=== PATIENT | male | born 1930 | race Caucasian/White ===

== ENCOUNTER → 2016-06-21 | Day surgery (SDC) | payer MEDICARE ==
[~2016-06-21] VITALS: Ht 185.4 cm; Wt 84.8 kg
[~2016-06-21] MED LIST: ACETAMINOPHEN TAB 650MG DOSE (2X325MG) PO PRN; ASPI81TA85 PO; BUPIVACAINE/EPIN 0.25% 30 ML VIAL As Ordered ONE; CHLO50TA PO; CLINDAMYCIN 600 MG in APPROPRIATE DILUENT 1 EA IV ONE; CLINDAMYCIN 600 MG/50 ML PREMIX BAG As Ordered ONE; GLYCOPYRROLATE INJ 0.2 MG/ML 2 ML VIAL As Ordered ONE; LIDOCAINE 2% INJ 100 MG/5 ML SDV (FOR ANES.) As Ordered ONE; LR 1,000 ML IV SCH; MIDAZOLAM INJ 2 MG/2 ML VIAL (J2250) As Ordered ONE; MIDAZOLAM INJ 5 MG/ML VIAL (J2250) As Ordered ONE; MULT1TAB18 PO; NEOSTIGMINE 1MG/ML 5 ML SYRINGE (J2710) As Ordered ONE; NORCO, ANEXSIA 5/325MG TABLET (HYDROcodone/ACETAMINOPHEN) As Ordered ONE; NORCO, ANEXSIA 5/325MG TABLET (HYDROcodone/ACETAMINOPHEN) PO PRN; ONDANSETRON 4MG/2ML VIAL (J2405) As Ordered ONE; ONDANSETRON 4MG/2ML VIAL (J2405) IV PRN; POTA10CA PO; PROPOFOL 200 MG/20 ML VIAL As Ordered ONE; PROS5TAB PO; ROCURONIUM BROMIDE 50 MG/5 ML VIAL As Ordered ONE; SPIR25TA2 PO; TERA10CA3 PO; dexameTHASONE 4 MG/ML 1ML VIAL (J1100) As Ordered ONE; fentaNYL 100 MCG/2 ML INJECTION (J3010) As Ordered ONE; fentaNYL 100 MCG/2 ML INJECTION (J3010) IV PRN; fentaNYL 250 MCG/5 ML INJECTION (J3010) As Ordered ONE
[2016-06-21 16:15] VITALS: BP 143/72
--- NOTE | 2016-06-24 06:13 | RO ---
DATE OF PROCEDURE: 06/21/2016 PREOPERATIVE DIAGNOSIS: Right inguinal hernia. POSTOPERATIVE DIAGNOSIS: Right inguinal hernia. PROCEDURE: Laparoscopic right inguinal hernia repair. SURGEON: Dr. Brizuela GRINDER TENDER: Dr. Lyn ANESTHESIA: General. ESTIMATED BLOOD LOSS (EBL): 5. COMPLICATIONS: None. INDICATION FOR PROCEDURE: Patient is an 85-year-old male who presents with a right inguinal hernia. Recommendation to proceed with laparoscopic, possible open repair. Risks and benefits of procedure not limited but including bleeding, infection, hernia recurrence, damage to surrounding structures, need for further surgery were discussed in detail with the patient. Informed was obtained and procedure was planned. DESCRIPTION OF PROCEDURE: Patient was brought back to operating room #6. After sufficient sedation, the abdomen was sterilely prepped and draped. Next, a Mendosa catheter was placed. Time-out was then done to confirm proper patient and proper procedure. Following that a 2 cm infraumbilical incision was made. Incision was carried to level of the fascia. Fascia was opened under direct visualization just to the left of midline. Preperitoneal space was then entered. A balloon dissector was placed. Preperitoneal space was dissected and then the balloon dissector was removed and replaced with a 10 mm balloon port. Preperitoneal space was then insufflated to 15 mmHg. Two 5 mm ports were placed in the midline in between the pubic symphysis and the umbilical port site. Using a combination of blunt and sharp dissection, the cord structures and hernia sac were identified on the right side. They were both dissected free. The hernia sac was dissected free from all the cord structures both posteriorly and laterally. Once this was completed, a Bard 3DMax large mesh was rolled up and placed inside the abdomen. It was tacked to the midline using the Protacker at the pubic symphysis. The mesh was unrolled laterally and posteriorly covering all the cord structures. The hernia sac was placed on top of the mesh and held in place while the insufflation was released. Ports were then removed. Fascia at the umbilical port was closed with [id number] #0 Vicryl suture. The skin incision closed with #4-0 Vicryl subcuticular sutures. The abdomen was then cleaned and dried. Steri-Strips, 4 x 4 and tape were applied, thus ending procedure.
== END | disposition home or self-care (01) ==
LOC: M SDC 10:41
PROVIDERS: ATTEND Surgery
DX: K40.90 Unilateral inguinal hernia, without obstruction or gangrene, not specified as recurrent (principal); I10 Essential (primary) hypertension; K42.9 Umbilical hernia without obstruction or gangrene; L40.9 Psoriasis, unspecified; M19.90 Unspecified osteoarthritis, unspecified site; N40.0 Benign prostatic hyperplasia without lower urinary tract symptoms; Z88.0 Allergy status to penicillin; Z88.1 Allergy status to other antibiotic agents; Z88.5 Allergy status to narcotic agent; Z87.891 Personal history of nicotine dependence; Z79.899 Other long term (current) drug therapy; Z79.52 Long term (current) use of systemic steroids; Z79.82 Long term (current) use of aspirin
CPT/HCPCS: 49650; C1781; J1100; J2250; J2405; J2710; J3010

== ENCOUNTER 2016-08-19 10:44 | Emergency (ER) | payer MEDICARE ==
[~2016-08-19] VITALS: Ht 185.4 cm; Wt 83.9 kg
[~2016-08-19 10:44] MED LIST changes: -ACETAMINOPHEN TAB 650MG DOSE (2X325MG) PO PRN; -BUPIVACAINE/EPIN 0.25% 30 ML VIAL As Ordered ONE; -CLINDAMYCIN 600 MG in APPROPRIATE DILUENT 1 EA IV ONE; -CLINDAMYCIN 600 MG/50 ML PREMIX BAG As Ordered ONE; -GLYCOPYRROLATE INJ 0.2 MG/ML 2 ML VIAL As Ordered ONE; -LIDOCAINE 2% INJ 100 MG/5 ML SDV (FOR ANES.) As Ordered ONE; -LR 1,000 ML IV SCH; -MIDAZOLAM INJ 2 MG/2 ML VIAL (J2250) As Ordered ONE; -MIDAZOLAM INJ 5 MG/ML VIAL (J2250) As Ordered ONE; -NEOSTIGMINE 1MG/ML 5 ML SYRINGE (J2710) As Ordered ONE; -NORCO, ANEXSIA 5/325MG TABLET (HYDROcodone/ACETAMINOPHEN) As Ordered ONE; -NORCO, ANEXSIA 5/325MG TABLET (HYDROcodone/ACETAMINOPHEN) PO PRN; -ONDANSETRON 4MG/2ML VIAL (J2405) As Ordered ONE; -ONDANSETRON 4MG/2ML VIAL (J2405) IV PRN; -PROPOFOL 200 MG/20 ML VIAL As Ordered ONE; -ROCURONIUM BROMIDE 50 MG/5 ML VIAL As Ordered ONE; -dexameTHASONE 4 MG/ML 1ML VIAL (J1100) As Ordered ONE; -fentaNYL 100 MCG/2 ML INJECTION (J3010) As Ordered ONE; -fentaNYL 100 MCG/2 ML INJECTION (J3010) IV PRN; -fentaNYL 250 MCG/5 ML INJECTION (J3010) As Ordered ONE
[2016-08-19] MEDS ORDERED: NS 1,000 ML IV SCH (15:33)
--- NOTE | 2016-08-19 16:10 | REP ---
ABDOMEN, FLAT HISTORY: Abdominal pain. COMPARISON: None. Accompanying frontal view of the chest has been compared to the previous portable examination of the chest of 03/24/2016. FINDINGS: KUB shows the intestinal gas pattern to be nonspecific. The organ silhouettes insofar as delineated are unremarkable. There is no evidence of free intraperitoneal air. IMPRESSION: Nonspecific. The frontal view of the chest is unchanged from the prior exam. Signed by Duy Jaramillo DO 08/19/2016 04:39 P
[2016-08-19 16:37] LABS: BASO % 0.4 % (0.0-1.0); EOS # 0.1 K/mm3 (0.0-0.50); EOS % 1.2 % (0.0-3.0); LARGE UNSTAINED CELL # 0.1 K/mm3 (0.0-0.4); LARGE UNSTAINED CELL % 1.3 % (0.0-4.0); LYMPH # 1.9 K/mm3 (1.5-4.5); MEAN CORPUSCULAR HEMOGLOBIN 31.7 pg (27.0-33.0); MEAN CORPUSCULAR VOLUME 93.4 fl (80.0-96.0); MONO # 0.6 K/mm3 (0.0-0.8); MONO % 5.7 % (0.0-5.0); NEUTROPHILS # 8.2 K/mm3 (1.8-7.7); NEUTROPHILS % 75.4 % (36.0-66.0); PLATELET COUNT, AUTOMATED 451 k/mm3 (150-450); RED CELL DISTRIBUTION WIDTH 12.9 % (11.5-14.5); WHITE BLOOD COUNT 10.9 K/mm3 (4.0-10.0)
[2016-08-19 16:55] LABS: ALBUMIN 4.4 GM/DL (3.2-5.2); ALBUMIN/GLOBULIN RATIO 1.38 (1.00-1.93); BILIRUBIN,DIRECT 0.1 MG/DL (0.0-0.2); BILIRUBIN,TOTAL 0.5 MG/DL (0.2-1.0); CALCIUM LEVEL 9.8 MG/DL (8.8-10.2); CREATININE FOR GFR 1.28 MG/DL (0.70-1.30); GLOMERULAR FILTRATION RATE 56.9 (>35); POTASSIUM SERUM 3.8 MEQ/L (3.5-5.1); TOTAL PROTEIN 7.6 GM/DL (6.4-8.2)
[2016-08-19] MEDS ORDERED: GASTROGRAFIN SOLUTION 30ML (Q9963) PO ONE ×2 (17:40→18:10)
[2016-08-19] MEDS ORDERED: ISOVUE-370 76% 100ML VIAL (Q9967) As Ordered ONE (18:43)
--- NOTE | 2016-08-19 19:48 | REP ---
CT abdomen and pelvis with IV and oral contrast: History: Change in bowel habits since hernia repair. Comparison abdomen pelvis CT study is from 06/30/2007. CT contrast dose: 100 mL of Isovue [address] findings: Preliminary digital organic lab worker radiograph shows a mild levoconvex curve and clips in the right upper quadrant. The lung bases are clear. The liver and the spleen are normal in size homogeneous in texture. There is a tiny cyst in the tip of the right lobe of the liver. This is unchanged from the 2008 prior exam. No adrenal lesion is seen on either side. There are multiple simple cysts affecting the kidneys bilaterally. The largest of these is in the lower pole of the right kidney measuring 4.3 cm in greatest diameter. No pancreatic abnormality is seen. Gallbladder is surgically absent. There is scattered diverticulosis affecting the right transverse colon. There is more extensive diverticulosis affecting the descending and sigmoid colon. No CT evidence of diverticulitis is seen. Small and large intestinal bowel loops are otherwise normal. There is a small fluid collection along the spermatic cord on the right side measuring 3.8 x 3.2 x 7 cm in diameter. This is compatible with a hydrocele. No hernia is appreciated. No bony destructive lesion seen. Impression: 1. Lyons colonic diverticulosis most pronounced in the left colon without CT evidence of diverticulitis. 2. Multiple renal simple cysts. 3. Postcholecystectomy. The appendix is surgically absent as well. 4. Right inguinal and scrotal hydrocele noted. No hernia seen. No acute intra-abdominal or pelvic abnormality. Signed by Deo Smith MD 08/20/2016 10:03 A
[2016-08-19 20:41] VITALS: BP 161/84
== END 2016-08-19 20:42 | disposition home or self-care (01) ==
LOC: M ED 14:37
DX: R10.9 Unspecified abdominal pain (principal); I10 Essential (primary) hypertension; Z88.5 Allergy status to narcotic agent; Z88.0 Allergy status to penicillin; Z88.8 Allergy status to other drugs, medicaments and biological substances; Z79.899 Other long term (current) drug therapy; Z87.891 Personal history of nicotine dependence; Z85.820 Personal history of malignant melanoma of skin; H26.9 Unspecified cataract
CPT/HCPCS: 36415; 74022; 74177; 80048; 80076; 83605; 83690; 85025; 96360; 96361; 99283; Q9963; Q9967

== ENCOUNTER 2016-08-30 10:09 | Emergency (ER) | payer MEDICARE ==
[~2016-08-30] VITALS: Ht 185.4 cm; Wt 81.6 kg
[2016-08-30] MEDS: ONDANSETRON 4 MG ORAL DISINTEGRATING TAB (S0181) PO ONE (11:16)
[2016-08-30] MEDS: ACETAMINOPHEN 325 MG TAB PO ONE (11:17)
[2016-08-30] MEDS ORDERED: ZOFR4TAB3 PO (11:49)
[2016-08-30] MEDS ORDERED: TESS100C PO (11:49)
[2016-08-30] MEDS ORDERED: ZITHTAB PO (11:49)
[2016-08-30 11:53] VITALS: BP 142/70
[2016-08-30] MEDS: AZITHROMYCIN 250 MG TAB PO ONE (11:58)
--- NOTE | 2016-08-30 12:26 | REP ---
CHEST X-RAY: Two views. HISTORY: Cough. Comparison study August 19, 2016. FINDINGS: There is a zone of mild linear fibrosis versus discoid atelectasis in the left base. The lungs are otherwise well inflated and clear. Pleural angles are sharp. Heart size is normal. There are surgical clips in the left axilla. IMPRESSION: No active disease. Signed by Deo Smith MD 08/30/2016 02:01 P
== END 2016-08-30 12:10 | disposition home or self-care (01) ==
LOC: M ED 11:24
DX: J20.9 Acute bronchitis, unspecified (principal)

== ENCOUNTER 2016-09-03 11:21 | Emergency (ER) | payer MEDICARE ==
[~2016-09-03] VITALS: Ht 185.4 cm; Wt 83.9 kg
[~2016-09-03 11:21] MED LIST changes: +TESS100C PO; +ZITHTAB PO; +ZOFR4TAB3 PO
[2016-09-03] MEDS ORDERED: MIRA3350 PO (11:42)
[2016-09-03] MEDS ORDERED: NS 500 ML IV ONE (12:45)
--- NOTE | 2016-09-03 13:31 | REP ---
Clinical: Acute cerebrovascular accident. Comparison: 04/27/2005. Findings: Age-related atrophy and microvascular ischemic changes are appreciated. The ventricles and sulci are symmetric. Rodriguez-white differentiation is maintained. There is no evidence for acute intracranial hemorrhage, mass/mass effect, pathology or infarction. No extra-axial fluid collection. Calvarium is intact. Paranasal sinuses and mastoid air cells are clear. Impression: Age related atrophy and microvascular ischemic changes. No acute intracranial hemorrhage, infarction, or mass/mass effect. Signed by Trent Iniguez MD 09/03/2016 01:23 P
--- NOTE | 2016-09-03 13:36 | REP ---
Clinical: Chest pain. Technique: PA and lateral. Comparison: 08/30/2016. Findings: Mediastinum and cardiac silhouette stable. Linear fibroatelectatic changes at the left base. No further consolidation, effusion, or pneumothorax. Skeletal structures demonstrate age-related changes. Evidence for prior left axillary node dissection. Impression: Acute versus chronic linear plate-like atelectasis at the left base. No further acute cardiopulmonary process. Signed by Trent Iniguez MD 09/03/2016 01:28 P
[2016-09-03] MEDS ORDERED: IPRATROPIUM 0.5MG/ALBUTEROL 2.5MG INH SOL UD 3ML (DUONEB)(J7620) NEB ONE (14:00)
[2016-09-03 14:21] LABS: BASO % 0.5 % (0.0-1.0); EOS % 0.6 % (0.0-3.0); LARGE UNSTAINED CELL # 0.1 K/mm3 (0.0-0.4); LARGE UNSTAINED CELL % 1.5 % (0.0-4.0); LYMPH # 1.5 K/mm3 (1.5-4.5); LYMPH % 19.4 % (24.0-44.0); MEAN CORPUSCULAR HEMOGLOBIN 31.9 pg (27.0-33.0); MEAN CORPUSCULAR HGB CONC 35.1 g/dl (32.0-36.5); MEAN CORPUSCULAR VOLUME 91.1 fl (80.0-96.0); MONO # 0.5 K/mm3 (0.0-0.8); MONO % 6.2 % (0.0-5.0); NEUTROPHILS # 5.3 K/mm3 (1.8-7.7); NEUTROPHILS % 71.8 % (36.0-66.0); PLATELET COUNT, AUTOMATED 379 k/mm3 (150-450); RED CELL DISTRIBUTION WIDTH 12.5 % (11.5-14.5); WHITE BLOOD COUNT 7.3 K/mm3 (4.0-10.0)
[2016-09-03 14:33] LABS: ALBUMIN 3.8 GM/DL (3.2-5.2); ALBUMIN/GLOBULIN RATIO 0.95 (1.00-1.93); ALKALINE PHOSPHATASE 58 U/L (45-117); ALT/SGPT 31 U/L (12-78); ANION GAP 11 MEQ/L (8-16); AST/SGOT 35 U/L (15-37); BILIRUBIN,DIRECT < 0.1 MG/DL (0.0-0.2); BILIRUBIN,TOTAL 0.3 MG/DL (0.2-1.0); BLOOD UREA NITROGEN 14 MG/DL (7-18); CALCIUM LEVEL 9.3 MG/DL (8.8-10.2); CARBON DIOXIDE LEVEL 25 MEQ/L (21-32); CHLORIDE LEVEL 97 MEQ/L (98-107); CREATININE FOR GFR 1.22 MG/DL (0.70-1.30); GLOMERULAR FILTRATION RATE > 60.0 (>35); GLUCOSE, FASTING 116 MG/DL (83-110); POTASSIUM SERUM 3.5 MEQ/L (3.5-5.1); SODIUM LEVEL 133 MEQ/L (136-145); TOTAL PROTEIN 7.8 GM/DL (6.4-8.2)
[2016-09-03] MEDS ORDERED: ALBUTEROL 90 MCG/ACT 8GM HFA INHALER INH ONE (16:00)
[2016-09-03] MEDS ORDERED: ALBU83IN INH (17:04)
[2016-09-03 17:14] VITALS: BP 171/83
--- NOTE | 2016-09-04 07:18 | ECGEPIP ---
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
--- NOTE | 2016-09-04 07:22 | ECGEPIP ---
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
== END 2016-09-03 17:43 | disposition home or self-care (01) ==
LOC: M ED 13:30
DX: J20.9 Acute bronchitis, unspecified (principal); R42 Dizziness and giddiness; R05 Cough

== ENCOUNTER → 2016-09-09 | Outpatient (CLI) | payer MEDICARE ==
[~2016-09-09] MED LIST changes: +ALBU83IN INH; +E-Z PAQUE 60% w/v SUSP 355ML BOTTLE As Ordered ONE; +MIRA3350 PO
--- NOTE | 2016-09-09 17:40 | REP ---
SMALL BOWEL FOLLOW-THROUGH: The procedure was performed under the direct supervision of Dr. Albarran. The images were reviewed with Dr. Albarran. The annealing torch operator film shows no organomegaly or pathological masses. The intestinal gas pattern is nonspecific. There is levoscoliosis. There are surgical clips noted in the right upper quadrant. There are vascular calcifications identified. There are coils in the right abdomen consistent with the patient's history of hernia repair. Liquid barium was administered and the barium column was followed through the small bowel to the level of the terminal ileum. Small bowel transit time is approximately 1 hour. During fluoroscopy gentle palpation shows all loops are freely movable and pliable. There are no fixed or angulated loops. The small bowel mucosal pattern is normal in course and caliber. There is no transition to suggest a partial small bowel obstruction. Spot filming of terminal ileum shows it to be unremarkable. IMPRESSION: Small bowel follow-through examination within normal limits. 2 minutes and 56 seconds of fluoroscopy time was utilized for this procedure. Reviewed by KAMILAH Bridges 09/10/2016 08:20 AEdited and Signed by Migue Albarran MD 09/10/2016 02:50 P
== END ==
LOC: M RAD 08:35
PROVIDERS: ATTEND Surgery
DX: K59.00 Constipation, unspecified (principal)

== ENCOUNTER → 2016-09-18 | Outpatient (CLI) | payer MEDICARE ==
[~2016-09-18] VITALS: Ht 185.4 cm; Wt 83.9 kg
[~2016-09-18] MED LIST changes: -E-Z PAQUE 60% w/v SUSP 355ML BOTTLE As Ordered ONE; +LIDOCAINE 2% INJ 100 MG/5 ML SDV (FOR ANES.) As Ordered ONE; +NS 1,000 ML IV SCH; +PROPOFOL 200 MG/20 ML VIAL As Ordered ONE
--- NOTE | 2016-09-18 12:49 | ROOR ---
Patient Name: Joshua Clark Procedure Date: 09/18/2016 12:27 PM Date of : 1930 Age: 86 Room: [facility] Gender: Male Note Status: Finalized Procedure: Colonoscopy Indications: Change in bowel habits Providers: DO May Steen MD: SERGIO BELL MD Requesting Provider: Medicines: Propofol per Anesthesia Complications: No immediate complications. Procedure: Pre-Anesthesia Assessment: - Prior to the procedure, a History and Physical was performed, and patient medications and allergies were reviewed. The patient is competent. The risks and benefits of the procedure and the sedation options and risks were discussed with the patient. All questions were answered and informed consent was obtained. Patient identification and proposed procedure were verified by the physician, the nurse, the anesthesiologist and the mathematics technician in the endoscopy suite. Mental Status Examination: alert and oriented. Airway Examination: normal oropharyngeal airway and neck mobility. Respiratory Examination: clear to auscultation. CV Examination: normal. Prophylactic Antibiotics: The patient does not require prophylactic antibiotics. Prior Anticoagulants: The patient has taken no previous anticoagulant or antiplatelet agents. ASA Grade Assessment: II - A patient with mild systemic disease. After reviewing the risks and benefits, the patient was deemed in satisfactory condition to undergo the procedure. The anesthesia plan was to use monitored anesthesia care (MAC). Immediately prior to administration of medications, the patient was re-assessed for adequacy to receive sedatives. The heart rate, respiratory rate, oxygen saturations, blood pressure, adequacy of pulmonary ventilation, and response to care were monitored throughout the procedure. The physical status of the patient was re-assessed after the procedure. The Colonoscope was introduced through the anus and advanced to the cecum, identified by the appendiceal orifice, ileocecal valve and palpation. The colonoscopy was performed without difficulty. The patient tolerated the procedure well. Findings: The perianal exam findings include non-thrombosed internal hemorrhoids and internal hemorrhoids that prolapse with straining, but spontaneously regress to the resting position (Grade II). Multiple small and large-mouthed diverticula were found in the entire colon. The exam was otherwise without abnormality on direct and retroflexion views. An extrinsic moderate stenosis measuring 4 cm (in length) x 1.5 cm (inner diameter) was found in the sigmoid colon and was traversed. Impression: - Non-thrombosed internal hemorrhoids and internal hemorrhoids that prolapse with straining, but spontaneously regress to the resting position (Grade II) found on perianal exam. - Diverticulosis in the entire examined colon. - The examination was otherwise normal on direct and retroflexion views. - No specimens collected. Recommendation: - Patient has a contact number available for emergencies. The signs and symptoms of potential delayed complications were discussed with the patient. Return to normal activities tomorrow. Written discharge instructions were provided to the patient. - Repeat colonoscopy in 5-10 years for screening purposes. - Return to my office PRN. - High fiber diet. Deonte Brizuela DO 09/18/2016 12:49:23 PM This report has been signed electronically. Number of Addenda: 0 Note Initiated On: 09/18/2016 12:27 PM Estimated Blood Loss: Estimated blood loss: none.
[2016-09-18 13:15] VITALS: BP 127/67
== END ==
LOC: M OPP 11:11
PROVIDERS: ATTEND Surgery
DX: R19.4 Change in bowel habit (principal); K64.1 Second degree hemorrhoids; K57.30 Diverticulosis of large intestine without perforation or abscess without bleeding; Z87.891 Personal history of nicotine dependence; I10 Essential (primary) hypertension; Z85.820 Personal history of malignant melanoma of skin; K40.90 Unilateral inguinal hernia, without obstruction or gangrene, not specified as recurrent; Z79.899 Other long term (current) drug therapy; Z88.5 Allergy status to narcotic agent; Z88.0 Allergy status to penicillin; Z88.1 Allergy status to other antibiotic agents

== ENCOUNTER → 2017-02-11 | Outpatient (REF) | payer MEDICARE ==
[~2017-02-11] MED LIST changes: -LIDOCAINE 2% INJ 100 MG/5 ML SDV (FOR ANES.) As Ordered ONE; -NS 1,000 ML IV SCH; -PROPOFOL 200 MG/20 ML VIAL As Ordered ONE
== END ==
LOC: M LAB REF 15:30
PROVIDERS: ATTEND Surgery
DX: C44.319 Basal cell carcinoma of skin of other parts of face (principal)

== ENCOUNTER 2018-03-06 18:11 | Emergency (ER) | payer MEDICARE ==
[2018-03-06 18:40] LABS: BASO % 0.5 % (0.0-1.0); EOS # 0.1 10^3/uL (0.0-0.50); EOS % 1.1 % (0.0-3.0); HEMATOCRIT 34.7 % (42.0-52.0); HEMOGLOBIN 11.8 g/dl (13.5-17.5); IMMATURE GRANULOCYTE % 0.5 % (0-3.0); LYMPH # 1.6 10^3/uL (1.5-4.5); LYMPH % 19.4 % (24.0-44.0); MONO # 0.7 10^3/uL (0.0-0.8); MONO % 8.3 % (0.0-5.0); NEUTROPHILS # 5.8 10^3/uL (1.8-7.7); NEUTROPHILS % 70.2 % (36.0-66.0); PLATELET COUNT, AUTOMATED 277 10^3/uL (150-450); RED BLOOD COUNT 3.69 10^6/uL (4.30-6.10); WHITE BLOOD COUNT 8.3 10^3/uL (4.0-10.0)
[2018-03-06 19:13] LABS: ANION GAP 9 MEQ/L (8-16); BLOOD UREA NITROGEN 30 MG/DL (7-18); CALCIUM LEVEL 9.2 MG/DL (8.8-10.2); CARBON DIOXIDE LEVEL 23 MEQ/L (21-32); CHLORIDE LEVEL 111 MEQ/L (98-107); CPK CREATINE PHOSPHOKINASE 202 U/L (39-308); CREATININE FOR GFR 1.49 MG/DL (0.70-1.30); GLOMERULAR FILTRATION RATE 47.6 (>35); GLUCOSE, FASTING 139 MG/DL (70-100); MB/CK RELATIVE INDEX 1.88 (< OR =4); POTASSIUM SERUM 3.9 MEQ/L (3.5-5.1); SODIUM LEVEL 143 MEQ/L (136-145); TROPONIN I 0.02 NG/ML (< 0.10)
[2018-03-06] MEDS: IBUPROFEN 600 MG TAB PO (20:34)
[2018-03-06] MEDS: CARISOPRODOL 350 MG TAB PO (20:35)
== END 2018-03-06 21:52 | disposition home or self-care (01) ==
LOC: M ED 18:11
DX: G62.9 Polyneuropathy, unspecified (principal); M54.10 Radiculopathy, site unspecified; I45.10 Unspecified right bundle-branch block; I44.4 Left anterior fascicular block; I51.9 Heart disease, unspecified; I10 Essential (primary) hypertension; Z72.0 Tobacco use; Z79.899 Other long term (current) drug therapy; Z88.5 Allergy status to narcotic agent; Z88.0 Allergy status to penicillin; Z88.8 Allergy status to other drugs, medicaments and biological substances
CPT/HCPCS: 71046

== ENCOUNTER → 2018-03-26 | Outpatient (REF) | payer MEDICARE ==
[2018-03-26 14:02] LABS: CREATININE FOR GFR 1.26 MG/DL (0.70-1.30); GLOMERULAR FILTRATION RATE 57.8 (>35)
[2018-03-26 14:02] LABS: BLOOD UREA NITROGEN 23 MG/DL (7-18)
== END ==
LOC: M LABNEURO 10:52
DX: Z01.812 Encounter for preprocedural laboratory examination (principal)
CPT/HCPCS: 82565

== ENCOUNTER → 2018-04-30 | Outpatient (CLI) | payer MEDICARE | LOC: M ONCR 13:00 | DX: C44.319 Basal cell carcinoma of skin of other parts of face (principal) | CPT/HCPCS: G0463 ==

== ENCOUNTER 2018-05-04 10:46 | Outpatient (RCR) | payer MEDICARE | END 2018-05-15 | LOC: M ONCR 10:46 | DX: C44.309 Unspecified malignant neoplasm of skin of other parts of face (principal) | CPT/HCPCS: 77300 ==

== ENCOUNTER 2018-06-11 08:37 | Outpatient (RCR) | payer MEDICARE ==
--- NOTE | 2018-05-19 13:54 | RADONC ---
RADIATION ONCOLOGY PROGRESS NOTE DATE: 05/18/2018 CHART NUMBER: [id number] PROGRESS NOTE: Mr. Clark is presently at a dose of 1250 cGy to his left gnosticist and is tolerating treatments quite well at this point with no complaints related to his radiation therapy. He is having no skin pain or other problems. REVIEW OF SYSTEMS: The patient's review of systems is noncontributory. Denies nausea, vomiting, fevers, chills, night sweats, diplopia, headaches, anxiety or depression, anorexia, weight loss, visual disturbances, chest pain, urinary or bowel difficulties, bone pain, or neurological problems. PHYSICAL EXAMINATION: The patient's skin is in excellent condition with no evidence of moist or dry desquamation. The remainder of his physical exam remains unchanged. Mr. Clark is tolerating treatments quite well and radiation will continue as scheduled.
--- NOTE | 2018-05-26 10:57 | RADONC ---
RADIATION ONCOLOGY PROGRESS NOTE DATE: 05/25/2018 CHART NUMBER: [id number] Mr. Clark is presently at a dose of 2500 cGy to his left yarsanism and is tolerating treatments quite well at this point with no complaints related to his radiation therapy. He is having no significant pain or discomfort. PHYSICAL EXAMINATION: On physical exam, the patient's skin shows erythema present but is overall in good condition with no evidence of moist or dry desquamation. I have reviewed the patient's present berrios, and I believe it would be beneficial to slightly adjust his radiation field to increase the treatment margin around his upper lesion. Therefore, we will not be treating him tomorrow. We will instead undertaken an electron setup, and radiation resumed to a slightly enlarged field on Friday.
--- NOTE | 2018-05-27 08:25 | RADONC ---
RADIATION ONCOLOGY SIMULATION NOTE DATE: 05/26/2018 CHART #: [id number] Mr. 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 Setup was done in order to make a fine adjustment of a few millimeters to give a little extra upper border. The setup was accomplished without difficulty or discomfort. Radiation treatments will continue as scheduled. I was present for clinical simulation. [facility] MEDICAL CENTERCammy
--- NOTE | 2018-06-01 15:18 | RADONC ---
RADIATION ONCOLOGY PROGRESS NOTE DATE:06/01/2018 CHART NUMBER: [id number] Mr. Clark is presently a dose of 3500 cGy to his left cheondoism and is tolerating treatments quite well at this point with no complaints related to his radiation therapy. He is having no skin or other discomfort. The patient's review of systems is noncontributory. Denies nausea, vomiting, fevers, chills, night sweats, diplopia, headaches, anxiety or depression, anorexia, weight loss, visual disturbances, chest pain, urinary or bowel difficulties, bone pain, or neurological problems. PHYSICAL EXAMINATION The patient's skin shows some erythema present but overall is in good condition with no evidence of moist or dry desquamation. The remainder of his physical exam remains unchanged. Mr. Clark is tolerating treatments quite well and radiation will continue as scheduled.
[~2018-06-11 08:37] MED LIST changes: +CHLO125TA PO; +KLOR10TA76 PO; +METH2.5T48 PO; -POTA10CA PO; +SOMA350T PO; +SPIR-10 PO; -SPIR25TA2 PO; +ZOFR4TAB14 PO; -ZOFR4TAB3 PO
--- NOTE | 2018-06-12 10:12 | RADONC ---
RADIATION ONCOLOGY PROGRESS NOTE DATE: 06/10/2018 CHART NUMBER: [id number] PROGRESS NOTE: Mr. Clark with a diagnosis of a basal cell carcinoma involving the left confucianist is currently receiving definitive local regional radiotherapy. His current dose is 4750 cGy of an anticipated 5000 cGy and treatments are going well. He denies any nausea, vomiting, headache or significant skin redness. His energy level is such that he is able to maintain most of his day-to-day activities without any alteration of his lifestyle. The remainder of the review of systems is essentially noncontributory as he does not have any significant decrease energy level, headaches or visual disturbances. EXAMINATION FINDINGS: The skin within the irradiated volume shows of minor erythematous blush without any significant desquamation. Lymphatics: No palpable peripheral lymphadenopathy is appreciated. The remainder of the physical examination is unchanged. IMPRESSION: Tolerating therapy well. PLAN: Treatments to continue. His last treatment will be tomorrow.
--- NOTE | 2018-06-14 14:02 | RADONC ---
RADIATION THERAPY SUMMARY DATE: 06/11/2018 CHART NUMBER: [id number] DIAGNOSIS: Basal cell carcinoma, left yarsanism. ECOG PERFORMANCE STATUS: 0. PLAN OF RADIOTHERAPY: Local regional radiotherapy for local regional control. Date radiotherapy started 05/11/2018, completed 06/11/2018. DOSE: The patient received a total of 5000 cGy administered in 20 fractions over 31 elapsed days. He was treated exclusively with a 6 MeV electron beam 100 cm SSD with 1/2 cm of bolusing material applied. Prior to treatment delivery localization was accomplished visually and treatment portals were defined by the use of appropriate collimation devices. 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 STATUS OF TUMOR: There was no evidence of residual basal cell carcinoma at the completion of his radiotherapy. TOLERANCE: He did tolerate the radiotherapy very well with no significant untoward side effects. He specifically denied any nausea, vomiting, headache, but did experience the anticipated skin erythema and hyperpigmentation. DISPOSITION: We would like to see him back in approximately 1 month for post radiotherapy followup visit and skin check and he was advised to return to his referring physicians as per their directions and instructions. cc: Sarita Jones MD
== END 2018-06-15 ==
LOC: M ONCR 08:37
PROVIDERS: ATTEND Radiology Radiation Oncology
DX: C44.309 Unspecified malignant neoplasm of skin of other parts of face (principal)

== ENCOUNTER → 2018-07-22 | Outpatient (CLI) | payer MEDICARE ==
--- NOTE | 2018-07-23 10:51 | RADONC ---
RADIATION ONCOLOGY FOLLOWUP NOTE DATE: 07/22/2018 CHART #: [id number] DIAGNOSIS: Basal cell carcinoma, left uatsdin. ECOG PERFORMANCE STATUS: 0. FOLLOWUP NOTE: Mr. Clark is a very pleasant 87-year-old white male with the diagnosis of a basal cell carcinoma of his left uatsdin who is presenting to us today for routine followup visit 1 month post completion of external beam radiation therapy. The patient presents today reporting that he is doing quite well with no complaints at this time related to his radiation therapy or disease. He has no skin pain or other problems. REVIEW OF SYSTEMS: The patient's review of systems is noncontributory and is consistent with his advanced age. Denies nausea, vomiting, fevers, chills, night sweats, diplopia, headaches, anxiety or depression, anorexia, weight loss, visual disturbances, chest pain, urinary or bowel difficulties, bone pain, or neurological problems. PHYSICAL EXAMINATION The patient's skin is in good condition with no evidence of moist or dry desquamation. There is no evidence of nodularity, ulceration or residual disease in the treated field. There is no preauricular, cervical, supraclavicular or infraclavicular lymphadenopathy present. There are no other lesions notable consistent with malignancy. ASSESSMENT: The patient is clinically CRYSTAL at this time is being discharged from our followup except on a p.r.n. basis. He will continue his close followup with his other physicians. cc: Sarita Jones MD
== END ==
LOC: M ONCR 09:03
PROVIDERS: ATTEND Radiology Radiation Oncology
DX: C44.309 Unspecified malignant neoplasm of skin of other parts of face (principal)

== ENCOUNTER 2019-04-10 11:40 | Emergency (ER) | payer MEDICARE ==
[~2019-04-10] VITALS: Ht 185.4 cm; Wt 80.0 kg
[2019-04-10] MEDS ORDERED: OLOP0.2S (11:57)
[2019-04-10 12:20] LABS: BASO % 0.7 % (0.0-1.0); EOS # 0.1 10^3/uL (0.0-0.5); EOS % 1.3 % (0.0-3.0); HEMATOCRIT 35.4 % (42.0-52.0); MEAN CORPUSCULAR HGB CONC 33.9 g/dl (32.0-36.5); MEAN CORPUSCULAR VOLUME 97.3 fl (80.0-96.0); MONO # 0.5 10^3/uL (0.0-0.8); MONO % 8.6 % (0.0-5.0); NEUTROPHILS # 4.3 10^3/uL (1.5-8.5); NEUTROPHILS % 71.2 % (36.0-66.0); PLATELET COUNT, AUTOMATED 242 10^3/uL (150-450); RED BLOOD COUNT 3.64 10^6/uL (4.30-6.10); WHITE BLOOD COUNT 6.1 10^3/uL (4.0-10.0)
[2019-04-10 12:31] LABS: INR 1.14; PROTHROMBIN TIME 14.3 SECONDS (11.8-14.0)
[2019-04-10 12:32] LABS: PARTIAL THROMBOPLASTIN TIME 31.1 SECONDS (25.0-38.4)
[2019-04-10 12:52] LABS: ALBUMIN 3.8 GM/DL (3.2-5.2); ALT/SGPT 32 U/L (12-78); BILIRUBIN,DIRECT < 0.1 MG/DL (0.0-0.2); BILIRUBIN,TOTAL 0.5 MG/DL (0.2-1.0); BLOOD UREA NITROGEN 35 MG/DL (7-18); CALCIUM LEVEL 9.3 MG/DL (8.8-10.2); CARBON DIOXIDE LEVEL 25 MEQ/L (21-32); CHLORIDE LEVEL 109 MEQ/L (98-107); CK-MB VALUE MASS 3.2 NG/ML (<3.6); CPK CREATINE PHOSPHOKINASE 155 U/L (39-308); CREATININE FOR GFR 1.47 MG/DL (0.70-1.30); GLOMERULAR FILTRATION RATE 48.2 (>35); GLUCOSE, FASTING 95 MG/DL (70-100); LIPASE 311 U/L (73-393); MB/CK RELATIVE INDEX 2.06 (< OR =4); POTASSIUM SERUM 4.2 MEQ/L (3.5-5.1); SODIUM LEVEL 141 MEQ/L (136-145); TOTAL PROTEIN 6.8 GM/DL (6.4-8.2); TROPONIN I 0.05 NG/ML (< 0.10)
--- NOTE | 2019-04-10 13:10 | REP ---
CHEST, PORTABLE: AP portable view of the chest is performed and compared with prior study of 03/06/2018. There is mild cardiomegaly with mild bibasilar interstitial fibrotic change. There is no acute infiltrate or pulmonary edema. There is mild calcification of the thoracic aorta. The mediastinal silhouette is unchanged. Metallic clips are seen in the left chest wall. IMPRESSION: Mild cardiomegaly and chronic changes without evidence of acute infiltrate or pulmonary edema. Electronically Signed by Deonte Rodriguez MD 04/10/2019 05:15 P
[2019-04-10] MEDS ORDERED: HEPARIN DRIP 25,000 UNITS in IV 1 EA IV SCH (13:35)
[2019-04-10] MEDS ORDERED: ASPIRIN 81 MG CHEW TABLET PO ONE (13:45)
[2019-04-10] MEDS ORDERED: HEPARIN SOD (PORCINE) 5000 UNITS/ML VIAL IV ONE (13:45)
[2019-04-10] MEDS ORDERED: ATORVASTATIN 20 MG TAB PO ONE (13:45)
[2019-04-10] MEDS ORDERED: CLOPIDOGREL 300 MG TAB (PLAVIX) PO ONE (13:45)
[2019-04-10] MEDS ORDERED: NS 1,000 ML IV SCH (13:45)
--- NOTE | 2019-04-10 14:30 | ECGEPIP ---
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
[2019-04-10 14:38] VITALS: BP 133/69
== END 2019-04-10 14:39 | disposition short-term general hospital (02) ==
LOC: M ED 11:40
DX: I20.0 Unstable angina (principal); I44.7 Left bundle-branch block, unspecified; I10 Essential (primary) hypertension; L40.50 Arthropathic psoriasis, unspecified; Z79.899 Other long term (current) drug therapy; Z88.0 Allergy status to penicillin; Z88.1 Allergy status to other antibiotic agents; Z88.5 Allergy status to narcotic agent; Z88.8 Allergy status to other drugs, medicaments and biological substances; Z87.891 Personal history of nicotine dependence

== ENCOUNTER 2019-09-13 11:02 | Emergency (ER) | payer MEDICARE ==
[~2019-09-13] VITALS: Ht 185.4 cm; Wt 79.4 kg
[~2019-09-13 11:02] MED LIST changes: +OLOP0.2S
[2019-09-13 11:04] VITALS: BP 159/81
[2019-09-13] MEDS ORDERED: XALA0.007 (11:51)
--- NOTE | 2019-09-13 12:54 | REP ---
CHEST, PORTABLE: AP portable view of the chest is performed and compared to a prior study of 04/10/2019. There is no acute infiltrate. Heart is upper limits of normal in size. Mediastinal silhouette is unremarkable. Metallic clips are again seen in the left chest wall. IMPRESSION: No acute pulmonary disease. Electronically Signed by Deonte Rodriguez MD 09/13/2019 03:19 P
--- NOTE | 2019-09-13 16:42 | ECGEPIP ---
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
== END 2019-09-13 12:18 | disposition left against medical advice (07) ==
LOC: M ED 11:02
DX: R42 Dizziness and giddiness (principal); I10 Essential (primary) hypertension; N40.0 Benign prostatic hyperplasia without lower urinary tract symptoms; M19.90 Unspecified osteoarthritis, unspecified site; Z79.899 Other long term (current) drug therapy; Z88.0 Allergy status to penicillin; Z88.1 Allergy status to other antibiotic agents; Z88.5 Allergy status to narcotic agent; Z88.8 Allergy status to other drugs, medicaments and biological substances

== ENCOUNTER 2019-10-03 08:55 | Observation (INO) | payer MEDICARE ==
[~2019-10-03] VITALS: Ht 185.4 cm; Wt 88.0 kg
[~2019-10-03 08:55] MED LIST changes: +XALA0.007 OU
--- NOTE | 2019-10-03 09:45 | REP ---
Portable chest x-ray: Single view. History: Chest pain. Comparison chest x-ray: September 13 2019. Findings: EKG monitoring electrodes overlie the chest. There are clips in the left axillary soft tissues. There is a linear density at the left base consistent with plate-like atelectasis. Lung berrios are otherwise clear. Heart size is borderline unchanged. No bony abnormalities seen. No focal infiltrate noted. Impression: Borderline heart size unchanged. Linear plate-like atelectasis left base. Otherwise no acute disease. Electronically Signed by Deo Smith MD 10/03/2019 09:37 A
[2019-10-03 09:52] LABS: BASO % 0.4 % (0.0-1.0); EOS # 0.1 10^3/uL (0.0-0.5); HEMOGLOBIN 11.4 g/dl (13.5-17.5); LYMPH # 1.3 10^3/uL (1.5-5.0); LYMPH % 18.4 % (24.0-44.0); MEAN CORPUSCULAR HEMOGLOBIN 32.6 pg (27.0-33.0); MEAN CORPUSCULAR HGB CONC 33.5 g/dl (32.0-36.5); MEAN CORPUSCULAR VOLUME 97.1 fl (80.0-96.0); MONO # 0.5 10^3/uL (0.0-0.8); MONO % 7.6 % (0.0-5.0); NEUTROPHILS # 4.9 10^3/uL (1.5-8.5); NEUTROPHILS % 71.7 % (36.0-66.0); PLATELET COUNT, AUTOMATED 248 10^3/uL (150-450); WHITE BLOOD COUNT 6.8 10^3/uL (4.0-10.0)
[2019-10-03 10:03] LABS: INR 1.19; PROTHROMBIN TIME 14.8 SECONDS (11.8-14.0)
--- NOTE | 2019-10-03 10:08 | REP ---
CT brain without contrast: History: CVA. Comparison head CT study September 03, 2016. CT findings: Digital preliminary blasting entry specialist radiograph is unremarkable. Bone window settings demonstrate an intact bony calvarium. There is fairly heavy vascular calcification in the distal internal carotid arteries and the distal vertebral arteries bilaterally. On soft tissue window settings, there is mild generalized volume loss. There is no evidence of intracranial hemorrhage. No acute infarction is visible. Rodriguez-white differentiation pattern is intact. There is some physiologic basal ganglia calcification. No extra-axial fluid collection, mass, or midline shift is seen. Impression: Vascular calcification and generalized volume loss. No acute intracranial abnormality. Electronically Signed by Deo Smith MD 10/03/2019 09:59 A
[2019-10-03 10:13] LABS: CALCIUM LEVEL 9.4 MG/DL (8.8-10.2); CK-MB VALUE MASS 3.8 NG/ML (<3.6); CREATININE FOR GFR 1.34 MG/DL (0.70-1.30); GLOMERULAR FILTRATION RATE 53.6 (>35); MB/CK RELATIVE INDEX 2.66 (< OR =4); POTASSIUM SERUM 3.9 MEQ/L (3.5-5.1); TROPONIN I 0.06 NG/ML (< 0.10)
[2019-10-03] MEDS ORDERED: ISOVUE-370 76% 100ML VIAL As Ordered ONE (10:47)
--- NOTE | 2019-10-03 11:32 | REP ---
CT pulmonary angiogram: With IV contrast. History: Chest pain, dizziness, rule out pulmonary embolus. Comparison studies: Comparison chest CT study March 24, 2016. Contrast dose: At 75 mL of Isovue [address] technique: Helical scanning is acquired and overlapping 1.5 mm and contiguous 3 mm axial images are reformatted. In addition, maximum intensity projection and multiplanar re-formation images are generated in sagittal and coronal imaging projections. CT pulmonary angiographic findings: There is good opacification of the pulmonary arterial tree. No vessel cutoff or filling defect is seen to suggest pulmonary embolism. Vascular calcification is noted. The thoracic aorta is somewhat tortuous. No evidence of aneurysm. There is coronary artery vascular calcification. No hilar or mediastinal mass or adenopathy is observed. No pleural or pericardial effusion is appreciated. There is no evidence of infiltrate, mass, or significant pulmonary nodule. There is a calcified granuloma in the superior segment of the right lower lobe. There is a focal area of subpleural fibrosis in the right middle lobe which is unchanged from the 2016 study. There is evidence of cardiomegaly, mild in degree. No adrenal lesion is seen. There are cortical cysts in the upper pole of each kidney. The patient is status post cholecystectomy. Right and left colonic diverticulosis is visible in the upper abdomen. Impression: No CT evidence of pulmonary embolism. Mild cardiac enlargement. Bilateral renal cysts. Colonic diverticulosis. Otherwise no acute disease. Electronically Signed by Deo Smith MD 10/03/2019 11:40 A
--- NOTE | 2019-10-03 11:47 | ECGEPIP ---
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
[2019-10-03] MEDS ORDERED: NS 500 ML IV ONE ×3 (15:45→21:30)
[2019-10-03 15:52] LABS: CK-MB VALUE MASS 3.3 NG/ML (<3.6); MB/CK RELATIVE INDEX 2.56 (< OR =4); TROPONIN I 0.05 NG/ML (< 0.10)
--- NOTE | 2019-10-03 15:55 | ECGEPIP ---
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
[2019-10-03] MEDS: ASPIRIN 81 MG CHEW TABLET PO ONE ×2 (15:59→16:02)
[2019-10-03] MEDS ORDERED: CHLO25TA PO (16:25)
[2019-10-03] MEDS ORDERED: TERA10CA3 PO (16:25)
[2019-10-03] MEDS ORDERED: CENT1TAB PO (16:25)
[2019-10-03] MEDS ORDERED: ASPI81CH33 PO (16:25)
[2019-10-03] MEDS ORDERED: zolPIDEM TARTRATE 5 MG TAB PO PRN (16:45)
[2019-10-03] MEDS ORDERED: ALPRAZolam 0.25 MG TAB PO PRN (16:45)
[2019-10-03] MEDS ORDERED: MOM 30ML SUSPENSION UDC PO PRN (16:45)
[2019-10-03] MEDS ORDERED: MAALOX 30 ML SUSP *UDC PO PRN (16:45)
[2019-10-03] MEDS ORDERED: MIRALAX *UNIT DOSE* 17GM PACKET PO PRN (16:45)
[2019-10-03] MEDS ORDERED: PERCOCET 5MG/325MG TAB PO PRN ×2 (16:45)
--- NOTE | 2019-10-03 16:58 | HPEPDOC ---
General Date of Admission Oct 03, 2019 at 08:56 Date of Service: Oct 03, 2019 Chief Complaint The patient is a 89-year-old male admitted with a reason for visit of Lt Arm Pain. Source: Patient Exam Limitations: Other (poor historian) Timing/Duration: Other (. 1 day) Severity: Moderate Associated Symptoms: Other (. Left shoulder pain) History of Present Illness 89 years old white male who has frequent witness to this emergency room recently and was seen at [facility] had a cardiac cath done and showed unknown vessel with 50% blockage and he was started on conservative medical management. No stents were placed in, patient been feeling very anxious aboutCOVID Infection he thinks he has a COVID infection as his left arm hurts and his left shoulder hurts, which was sudden onset, persistent, nonradiating, not associated any with any fever, shortness of breath, chest pain, nausea, vomiting, abdominal pain or dizziness. Unable to get detailed history as patient is very poor historian, he forgets in the mid sentences and also has a flight of ideas and also uses arm profane language during during my interview. Home Medications Scheduled Chlorthalidone (Chlorthalidone) 25 Mg Tablet, 25 MG PO DAILY, (Reported) Finasteride (Proscar) 5 Mg Tab, 5 MG PO QHS, (Reported) Latanoprost (Xalatan) 0.005% 2.5ML Drops, 1 DROP OU QHS, (Reported) Methotrexate Sodium (Methotrexate) 2.5 Mg Tab, 10 MG PO QWEEK, (Reported) FRIDAY Multivit-Min/FA/Lycopen/Lutein (Centrum Silver Tablet) 1 Each Tablet, 1 TAB PO DAILY, (Reported) Potassium Chloride (Klor-Con M10) 10 Meq Tabcr, 20 MEQ PO DAILY, (Reported) Spironolactone (Spironolactone) 25 Mg Tab, 25 MG PO DAILY, (Reported) Terazosin Hcl (Terazosin HCl) 10 Mg Capsule, 10 MG PO QHS, (Reported) Scheduled PRN Aspirin (Aspirin) 81 Mg Tab.chew, 162 MG PO for PAIN, (Reported) Polyethylene Glycol 3350 (Miralax) 1 Pow Pow, 17 GM PO DAILY PRN for CONSTIPATION, (Reported) dilute in 8 ounces of water or juice Allergies Coded Allergies: Penicillins (Verified Allergy, Intermediate, Itching and Swelling, 5/1/19) codeine (Verified Allergy, Intermediate, Swelling, 10/14/18) doxycycline (Verified Allergy, Intermediate, Hives, 10/14/18) Qrcualf-Aib-Mtu Reductase Inhibitor (Verified Adverse Reaction, Intermediate, Muscle Aches, 10/14/18) atorvastatin (Verified Adverse Reaction, Intermediate, Muscle Aches, 10/14/18) Past Medical History Medical History CAD, hypertension, BPH, arthritis, cataracts Surgical History Right ankle repair, knee surgery, appendectomy, hernia repair, melanoma excision Family History Family history reviewed. No history of any significant disease Social History * Smoker: Denies Alcohol: Denies Drugs: denies A-FIB/CHADSVASC A-FIB History Current/History of A-Fib/PAF?: No Review of Systems Constitutional: Denies: Chills, Fever, Malaise, Night Sweats, Weakness, Fatigue, Weight Loss, Lethargy, Other Eyes: Denies: Pain, Vision change, Conjunctivae inflammation, Eyelid inflammation, Redness, Other ENT: Denies: Head Aches, Ear Pain, Dysphagia, Sinus Congestion, Post Nasal Drip, Sore Throat, Epistaxis, Other Symptoms Skin: Denies: Rash, Lesions, Jaundice, Bruising, Itching, Dry, Breakdown, Nail Changes, Other Pulmonary: Denies: Dyspnea, Cough, Pleuritic Chest Pain, Other Symptoms Cardiovascular: Denies: Chest Pain, Palpitations, Orthopnea, Paroxysmal Noc. Dyspnea, Edema, Lt Headedness, Other Symptoms Gastrointestinal: Denies: Nausea, Vomiting, Abdominal Pain, Diarrhea, Constipation, Melena, Hematochezia, Other Symptoms Genitourinary: Denies: Dysuria, Frequency, Incontinence, Hematuria, Retention, Other Symptoms Hematologic: Denies: Bruising, Bleeding Excessively, Petecchia, Purpura, Enlarged Lymph Nodes, Other Hematologic Endocrine: Denies: Polydipsia, Polyphagia, Polyuria, Heat Intolerance, Cold Intolerance, Other Endocrine Sx Musculoskeletal: Reports: Other Symptoms (, left arm and shoulder pain) Neurological: Denies: Weakness, Numbness, Incoordination, Change in speech, Confusion, Seizures, Other Symptoms Psych: Denies: Mood Normal, Anxiety, Depression, Memory Issues, Thoughts of Self Harm, Anger, Thoughts of Harming Other, Other Psych Physical Examination General Exam: Positive: Alert, Cooperative Eye Exam: Positive: PERRLA, Conjunctiva & lids normal ENT Exam: Positive: Atraumatic, Mucous membr. moist/pink Neck Exam: Positive: Supple Chest Exam: Positive: Clear to auscultation, Normal air movement Heart Exam: Positive: Rate Normal, Normal S1, Normal S2 Abdomen Exam: Positive: Normal bowel sounds, Soft Extremity Exam: Positive: Normal pulses, Other (. No trauma noted. No motion on left arm and left shoulder within normal limits) Skin Exam: Positive: Nl turgor and temperature Neuro Exam: Positive: Strength at 5/5 X4 ext, Cranial Nerves 3-12 NL Psych Exam: Positive: Anxiety, Oriented x 3 Vital Signs Vital Signs Date Time Temp Pulse Resp B/P (MAP) Pulse Ox O2 Delivery O2 Flow Rate FiO2 10/03/19 13:00 52 18 116/55 (75) 97 Room Air 10/03/19 08:58 96.8 Laboratory Data Labs 24H Laboratory Tests 2 10/03/19 09:38: Immature Granulocyte % (Auto) 0.9, Neutrophils (%) (Auto) 71.7H, Lymphocytes (%) (Auto) 18.4L, Monocytes (%) (Auto) 7.6H, Eosinophils (%) (Auto) 1.0, Basophils (%) (Auto) 0.4, Neutrophils # (Auto) 4.9, Lymphocytes # (Auto) 1.3L, Monocytes # (Auto) 0.5, Eosinophils # (Auto) 0.1, Basophils # (Auto) 0.0, Nucleated Red Blood Cells % (auto) 0.0, Prothrombin Time 14.8H, Prothromb Time International Ratio 1.19, Activated Partial Thromboplast Time 28.0, Anion Gap 8, Glomerular Fi ltration Rate 53.6, Calcium Level 9.4, Total Creatine Kinase 143, Creatine Kinase MB 3.8H, Creatine Kinase MB Relative Index 2.66, Troponin I 0.06 10/03/19 15:17: Total Creatine Kinase 129, Creatine Kinase MB 3.3, Creatine Kinase MB Relative Index 2.56, Troponin I 0.05 CBC/BMP Laboratory Tests 10/03/19 09:38 Problems (1) Left arm pain Status: Acute Problem Text: Left arm pain, most likely musculoskeletal or could be secondary to osteoarthritis as patient has a history of osteoarthritis and he is on methotrexate for possible rheumatoid arthritis as well. I doubt patient's left arm and shoulder pain is cardiac in nature Kayleen had a CTA of chest, CT of the head and chest x-ray there was a lot of essentially negative EKG shows some sinus rhythm with first-degree AV block, no acute ST-T changes CBC, CMP essentially within normal range Troponins are 0.06 and 0.05 We were asked to admit patient for observation as ED [employer] Jordyn has spoken with Dr. Billingsley and he recommended it. Admit patient to Medr floor with telemetry Repeat 2 more troponins overnight Continue all patient's home meds Pain management of left arm with Percocet as per orders Will also order x-ray of left arm and shoulder for workup completeness sack DVT prophylaxis with heparin Out of bed as tolerated Low-sodium diet Possible discharge in a.m. (2) CAD (coronary artery disease) Status: Chronic Problem Text: Old records from Dr. Billingsley's office has been ordered . He was recently seen and had a cardiac cath done at [facility] and was started on conservative medical management Continue all home meds (3) HTN (hypertension) Status: Chronic Problem Text: Continue home meds (4) BPH (benign prostatic hyperplasia) Status: Chronic Problem Text: Continue home meds Plan / VTE VTE Prophylaxis Ordered?: Yes ROSALES BAUTISTA MD Oct 03, 2019 16:58
[2019-10-03] MEDS ORDERED: traMADol 50 MG TAB PO PRN (17:00)
[2019-10-03] MEDS ORDERED: IBUPROFEN 600 MG TAB PO PRN (17:15)
[2019-10-03 17:32] VITALS: BP 132/67
[2019-10-03] MEDS: ACETAMINOPHEN TAB 650MG DOSE (2X325MG) PO PRN (18:29)
[2019-10-03 19:55] VITALS: BP 141/74
[2019-10-03 20:29] LABS: CK-MB VALUE MASS 3.8 NG/ML (<3.6); MB/CK RELATIVE INDEX 2.48 (< OR =4); TROPONIN I 0.05 NG/ML (< 0.10)
[2019-10-03 20:30] VITALS: BP 100/58
[2019-10-03] MEDS: DOCUSATE SODIUM 100 MG CAP PO SCH (20:55)
[2019-10-03] MEDS: HEPARIN SOD (PORCINE) 5000UNITS/ML VIAL (J1644 PER 1000UNITS) SC SCH (20:56)
[2019-10-03 21:00] VITALS: BP 98/58
[2019-10-03] MEDS ORDERED: LATANOPROST 0.005% OPHTH SOLN 2.5 ML OU SCH (21:00)
[2019-10-03] MEDS ORDERED: TERAZOSIN 5 MG CAP PO SCH (21:00)
[2019-10-03] MEDS ORDERED: FINASTERIDE 5 MG TAB PO SCH (21:00)
[2019-10-03 21:50] VITALS: BP 102/74
[2019-10-03 23:01] VITALS: BP 115/57
[2019-10-03] MEDS ORDERED: SLF 3 ML SYR IV PRN (23:45)
[2019-10-04] VITALS: BP 116/67
[2019-10-04] MEDS: ACETAMINOPHEN TAB 650MG DOSE (2X325MG) PO PRN ×2 (02:47→09:29)
[2019-10-04 04:00] VITALS: BP 141/63
[2019-10-04 04:50] LABS: HEMATOCRIT 35.1 % (42.0-52.0); HEMOGLOBIN 11.8 g/dl (13.5-17.5); MEAN CORPUSCULAR HEMOGLOBIN 32.6 pg (27.0-33.0); MEAN CORPUSCULAR HGB CONC 33.6 g/dl (32.0-36.5); PLATELET COUNT, AUTOMATED 244 10^3/uL (150-450); RED BLOOD COUNT 3.62 10^6/uL (4.30-6.10); WHITE BLOOD COUNT 7.8 10^3/uL (4.0-10.0)
[2019-10-04 05:15] LABS: ALBUMIN 3.6 GM/DL (3.2-5.2); BILIRUBIN,TOTAL 0.5 MG/DL (0.2-1.0); CALCIUM LEVEL 8.8 MG/DL (8.8-10.2); CREATININE FOR GFR 1.24 MG/DL (0.70-1.30); GLOMERULAR FILTRATION RATE 58.6 (>35); MAGNESIUM LEVEL 1.7 MG/DL (1.8-2.4); POTASSIUM SERUM 3.8 MEQ/L (3.5-5.1); TOTAL PROTEIN 6.5 GM/DL (6.4-8.2); TROPONIN I 0.06 NG/ML (< 0.10)
[2019-10-04] MEDS ORDERED: SLF 3 ML SYR IV SCH (06:00)
--- NOTE | 2019-10-04 07:48 | ECGEPIP ---
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
--- NOTE | 2019-10-04 07:49 | ECGEPIP ---
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
[2019-10-04 08:00] VITALS: BP 144/64
[2019-10-04] MEDS ORDERED: CHLORTHALIDONE 25 MG TAB PO SCH (09:00)
[2019-10-04] MEDS ORDERED: ASPIRIN 325 MG TAB PO SCH (09:00)
[2019-10-04] MEDS ORDERED: MULTIVITAMINS/MINERALS THERAP 1 TAB PO SCH (09:00)
[2019-10-04] MEDS ORDERED: POTASSIUM CHLORIDE 10 MEQ SR TABLET PO SCH (09:00)
[2019-10-04] MEDS ORDERED: SPIRONOLACTONE 25 MG TAB PO SCH (09:00)
[2019-10-04] MEDS: DOCUSATE SODIUM 100 MG CAP PO SCH (09:29)
[2019-10-04] MEDS: HEPARIN SOD (PORCINE) 5000UNITS/ML VIAL (J1644 PER 1000UNITS) SC SCH (09:30)
[2019-10-04] MEDS ORDERED: ACET1TAB55 PO (09:50)
--- NOTE | 2019-10-04 10:31 | DS.PDOC ---
Discharge Summary General Date of Admission Oct 03, 2019 at 08:56 Date of Discharge 10/04/19 Discharge Summary PROCEDURES PERFORMED DURING STAY: None. ADMITTING DIAGNOSES: 1. Left arm pain. DISCHARGE DIAGNOSES: 1. Left arm pain, most likely secondary to musculoskeletal arthritis in nature, CAD, hypertension, hyperlipidemia. COMPLICATIONS/CHIEF COMPLAINT: Lt Arm Pain. HISTORY OF PRESENT ILLNESS: 89 years old white male who has frequent witness to this emergency room recently and was seen at [facility] had a cardiac cath done and showed unknown vessel with 50% blockage and he was started on conservative medical management. No stents were placed in, patient been feeling very anxious aboutCOVID Infection he thinks he has a COVID infection as his left arm hurts and his left shoulder hurts, which was sudden onset, persistent, nonradiating, not associated any with any fever, shortness of breath, chest pain, nausea, vomiting, abdominal pain or dizziness. Unable to get detailed history as patient is very poor historian, he forgets in the mid sentences and also has a flight of ideas and also uses arm profane language during during my interview.. HOSPITAL COURSE: Patient was admitted to telemetry for further observation. His troponins 5 were negative. He never complained about chest pain but considering his history of CAD and a left arm pain, which most likely is arthritic or musculoskeletal in nature. He was admitted for observation only. Patient's all workup was essentially negative. He will be discharged home and follow with his slasher, Dr. Billingsley as an outpatient in one week on all his home meds. Tylenol when necessary for pain. DISCHARGE MEDICATIONS: Please see below. ALLERGIES: Please see below. PHYSICAL EXAMINATION ON DISCHARGE: VITAL SIGNS: Please see below. GENERAL: Within normal limits HEENT: PERRLA. Extraocular muscles intact NECK: Normal CARDIOVASCULAR EXAMINATION: S1, S2, regular RESPIRATORY EXAMINATION: Clear to A&P ABDOMINAL EXAMINATION: , Soft, nontender, bowel sounds present EXTREMITIES: No clubbing, cyanosis, edema SKIN: Normal NEUROLOGICAL EXAMINATION: . No focal motor sensory deficit PSYCHIATRIC EXAMINATION: Normal LABORATORY DATA: Please see below. IMAGING: Chest x-ray, CT chest and CT of the head, all essentially within normal limits PROGNOSIS: Good ACTIVITY: As tolerated. DIET: Cardiac diet DISCHARGE PLAN: Follow with Dr. roshan Billingsley in one week DISPOSITION: . Home DISCHARGE INSTRUCTIONS: 1. As per discharge instructions. ITEMS TO FOLLOWUP ON ON OUTPATIENT: 1. Follow with Dr. Billingsley in one week. DISCHARGE CONDITION: Stable. TIME SPENT ON DISCHARGE: 35 minutes. Vital Signs/I&Os Vital Signs Date Time Temp Pulse Resp B/P (MAP) Pulse Ox O2 Delivery O2 Flow Rate FiO2 10/04/19 08:00 97.4 74 17 144/64 (90) 100 Room Air I&O- Last 24 Hours up to 6 AM 10/04/19 06:00 Intake Total 1500 ml Output Total 325 ml Balance 1175 ml Laboratory Data Labs 24H Laboratory Tests 2 10/03/19 15:17: Total Creatine Kinase 129, Creatine Kinase MB 3.3, Creatine Kinase MB Relative Index 2.56, Troponin I 0.05 10/03/19 19:57: Total Creatine Kinase 153, Creatine Kinase MB 3.8H, Creatine Kinase MB Relative Index 2.48, Troponin I 0.05 10/03/19 22:02: Troponin I 0.05 10/04/19 04:12: Troponin I 0.06, Nucleated Red Blood Cells % (auto) 0.0, Anion Gap 7L, Glomerular Filtration Rate 58.6, Calcium Level 8.8, Magnesium Level 1.7L, Total Bilirubin 0.5, Aspartate Amino Transf (AST/SGOT) 20, Alanine Aminotransferase (ALT/SGPT) 21, Alkaline Phosphatase 50, Total Protein 6.5, Albumin 3.6, Albumin/Globulin Ratio 1.24 CBC/BMP Laboratory Tests 10/04/19 04:12 Discharge Medications Scheduled Chlorthalidone (Chlorthalidone) 25 Mg Tablet, 25 MG PO DAILY, (Reported) Finasteride (Proscar) 5 Mg Tab, 5 MG PO QHS, (Reported) Latanoprost (Xalatan) 0.005% 2.5ML Drops, 1 DROP OU QHS, (Reported) Methotrexate Sodium (Methotrexate) 2.5 Mg Tab, 10 MG PO QWEEK, (Reported) FRIDAY Multivit-Min/FA/Lycopen/Lutein (Centrum Silver Tablet) 1 Each Tablet, 1 TAB PO DAILY, (Reported) Potassium Chloride (Klor-Con M10) 10 Meq Tabcr, 20 MEQ PO DAILY, (Reported) Spironolactone (Spironolactone) 25 Mg Tab, 25 MG PO DAILY, (Reported) Terazosin Hcl (Terazosin HCl) 10 Mg Capsule, 10 MG PO QHS, (Reported) Scheduled PRN Acetaminophen (Acetaminophen) 325 Mg Tablet, 650 MG PO Q4H PRN for PAIN OR FEVER Aspirin (Aspirin) 81 Mg Tab.chew, 162 MG PO for PAIN, (Reported) Polyethylene Glycol 3350 (Miralax) 1 Pow Pow, 17 GM PO DAILY PRN for CONSTIPATION, (Reported) dilute in 8 ounces of water or juice Allergies Coded Allergies: Penicillins (Verified Allergy, Intermediate, Itching and Swelling, 10/14/18) codeine (Verified Allergy, Intermediate, Swelling, 10/14/18) doxycycline (Verified Allergy, Intermediate, Hives, 10/14/18) Vpdmmvm-Hnb-Cai Reductase Inhibitor (Verified Adverse Reaction, Intermediate, Muscle Aches, 10/14/18) atorvastatin (Verified Adverse Reaction, Intermediate, Muscle Aches, 10/14/18) ROSALES BAUTISTA MD Oct 04, 2019 10:31
== END 2019-10-04 11:45 | disposition home or self-care (01) ==
LOC: M ED 08:55 → M ED INP 08:56 → ENRESERVDT 16:52 → ENRESERVTM 16:52 → M MSPAV 17:26 → M PCU 22:36
PROVIDERS: ADMIT Internal Medicine; ATTEND Internal Medicine
DX: M79.602 Pain in left arm (principal); M25.512 Pain in left shoulder; M19.90 Unspecified osteoarthritis, unspecified site; I11.9 Hypertensive heart disease without heart failure; I25.10 Atherosclerotic heart disease of native coronary artery without angina pectoris; I49.9 Cardiac arrhythmia, unspecified; I44.0 Atrioventricular block, first degree; I44.7 Left bundle-branch block, unspecified; N40.0 Benign prostatic hyperplasia without lower urinary tract symptoms; H26.9 Unspecified cataract; Z85.828 Personal history of other malignant neoplasm of skin; Z87.891 Personal history of nicotine dependence; Z79.899 Other long term (current) drug therapy; Z88.0 Allergy status to penicillin; Z88.5 Allergy status to narcotic agent; Z88.1 Allergy status to other antibiotic agents; Z88.8 Allergy status to other drugs, medicaments and biological substances
CPT/HCPCS: 36415; 70450; 71045; 71275; 80048; 80053; 82550; 82553; 83735; 84484; 85025; 85027; 85610; 85730; 93005; 93041; 96360; 96361; 96372; 99285; G0378; J1644; Q9967

== ENCOUNTER → 2019-10-20 | Outpatient (CLI) | payer MEDICARE ==
[~2019-10-20] MED LIST changes: +ACET1TAB55 PO; +ASPI81CH33 PO; +CENT1TAB PO; +CHLO25TA PO
[2019-10-20 10:30] LABS: CHOLESTEROL RISK RATIO 2.785 (<5)
== END ==
LOC: M PLALAB 08:00
PROVIDERS: ATTEND Internal Medicine Cardiovascular Disease
DX: E78.5 Hyperlipidemia, unspecified (principal)

== ENCOUNTER → 2019-12-01 | Outpatient (CLI) | payer MEDICARE ==
[~2019-12-01] MED LIST changes: -ASPI81TA85 PO; +ASPI81TA86 PO
[2019-12-01 12:38] LABS: BASO # 0.1 10^3/uL (0.0-0.2); BASO % 0.8 % (0.0-1.0); EOS # 0.1 10^3/uL (0.0-0.5); EOS % 0.8 % (0.0-3.0); HEMATOCRIT 35.6 % (42.0-52.0); HEMOGLOBIN 11.8 g/dl (13.5-17.5); LYMPH % 14.8 % (24.0-44.0); MEAN CORPUSCULAR HEMOGLOBIN 32.8 pg (27.0-33.0); MEAN CORPUSCULAR HGB CONC 33.1 g/dl (32.0-36.5); MEAN CORPUSCULAR VOLUME 98.9 fl (80.0-96.0); MONO # 0.5 10^3/uL (0.0-0.8); NEUTROPHILS # 4.9 10^3/uL (1.5-8.5); NEUTROPHILS % 74.4 % (36.0-66.0); PLATELET COUNT, AUTOMATED 267 10^3/uL (150-450); WHITE BLOOD COUNT 6.6 10^3/uL (4.0-10.0)
[2019-12-01 13:13] LABS: ALBUMIN 3.8 GM/DL (3.2-5.2); BILIRUBIN,TOTAL 0.5 MG/DL (0.2-1.0); C REACTIVE PROTEIN QUANTITATIV 0.3 MG/DL (0.00-0.30); CALCIUM LEVEL 9.2 MG/DL (8.8-10.2); CREATININE FOR GFR 1.27 MG/DL (0.70-1.30); POTASSIUM SERUM 3.7 MEQ/L (3.5-5.1)
[2019-12-01 13:55] LABS: ERYTHROCYTE SEDIMENTATION RATE 34 mm/hr (0-20)
== END ==
LOC: M PLALAB 09:43
PROVIDERS: ATTEND Internal Medicine Rheumatology
DX: Z51.81 Encounter for therapeutic drug level monitoring (principal); Z79.899 Other long term (current) drug therapy; L40.50 Arthropathic psoriasis, unspecified

== ENCOUNTER → 2019-12-29 | Outpatient (CLI) | payer MEDICARE ==
[2019-12-29 13:58] LABS: ALBUMIN 3.8 GM/DL (3.2-5.2); BLOOD UREA NITROGEN 26 MG/DL (7-18); CALCIUM LEVEL 9.4 MG/DL (8.8-10.2); CARBON DIOXIDE LEVEL 26 MEQ/L (21-32); CHLORIDE LEVEL 108 MEQ/L (98-107); CREATININE FOR GFR 1.18 MG/DL (0.70-1.30); GLOMERULAR FILTRATION RATE > 60.0 (>35); GLUCOSE, FASTING 96 MG/DL (70-100); NT-PRO BNP 2202 PG/ML (<450); PHOSPHORUS LEVEL 2.8 MG/DL (2.5-4.9); POTASSIUM SERUM 4.4 MEQ/L (3.5-5.1); SODIUM LEVEL 141 MEQ/L (136-145)
== END ==
LOC: M PLALAB 09:25
PROVIDERS: ATTEND Internal Medicine Cardiovascular Disease
DX: I50.42 Chronic combined systolic (congestive) and diastolic (congestive) heart failure (principal); Z79.82 Long term (current) use of aspirin

== ENCOUNTER → 2020-04-28 | Outpatient (CLI) | payer MEDICARE ==
[2020-04-28 11:07] LABS: HEMATOCRIT 35.8 % (42.0-52.0); HEMOGLOBIN 11.8 g/dl (13.5-17.5); MEAN CORPUSCULAR HEMOGLOBIN 32.5 pg (27.0-33.0); MEAN CORPUSCULAR VOLUME 98.6 fl (80.0-96.0); PLATELET COUNT, AUTOMATED 260 10^3/uL (150-450); RED BLOOD COUNT 3.63 10^6/uL (4.30-6.10)
[2020-04-28 11:34] LABS: HEMOGLOBIN A1c 5.6 %
[2020-04-28 11:50] LABS: ALBUMIN 4.1 GM/DL (3.2-5.2); BILIRUBIN,TOTAL 0.7 MG/DL (0.2-1.0); CALCIUM LEVEL 9.8 MG/DL (8.8-10.2); CHOLESTEROL RISK RATIO 3.983 (<5); CREATININE FOR GFR 1.52 MG/DL (0.70-1.30); GLOMERULAR FILTRATION RATE 46.3 (>35); POTASSIUM SERUM 4.5 MEQ/L (3.5-5.1); PROSTATIC SPECIFIC AG MONITOR 0.31 NG/ML (< 4.00); THYROID STIMULATING HORMONE 6.74 uIU/ML (0.358-3.740); TOTAL PROTEIN 7.4 GM/DL (6.4-8.2)
== END ==
LOC: M LAB 10:01
PROVIDERS: ATTEND Family Medicine
DX: I10 Essential (primary) hypertension (principal); R53.83 Other fatigue; E03.9 Hypothyroidism, unspecified

== ENCOUNTER → 2020-07-12 | Outpatient (CLI) | payer MEDICARE ==
[2020-07-12 14:51] LABS: CREATININE FOR GFR 1.49 MG/DL (0.70-1.30); GLOMERULAR FILTRATION RATE 47.4 (>35); POTASSIUM SERUM 4.2 MEQ/L (3.5-5.1)
== END ==
LOC: M PLALAB 09:52
PROVIDERS: ATTEND Physician Assistant
DX: I50.42 Chronic combined systolic (congestive) and diastolic (congestive) heart failure (principal)

== ENCOUNTER → 2020-10-10 | Outpatient (REF) | payer MEDICARE ==
[2020-10-10 14:05] LABS: CALCIUM LEVEL 9.3 MG/DL (8.8-10.2); CREATININE FOR GFR 1.34 MG/DL (0.70-1.30); GLOMERULAR FILTRATION RATE 53.4 (>35)
== END ==
LOC: M PLALAB 12:56
PROVIDERS: ATTEND Physician Assistant
DX: I50.42 Chronic combined systolic (congestive) and diastolic (congestive) heart failure (principal)

== ENCOUNTER → 2021-01-11 | Outpatient (CLI) | payer MEDICARE ==
[~2021-01-11] MED LIST changes: -OLOP0.2S; +OLOP2.5D7
[2021-01-11 14:03] LABS: CREATININE FOR GFR 1.4 MG/DL (0.70-1.30); GLOMERULAR FILTRATION RATE 50.8 (>35); MAGNESIUM LEVEL 2.1 MG/DL (1.8-2.4); POTASSIUM SERUM 4.2 MEQ/L (3.5-5.1)
== END ==
LOC: M PLALAB 09:34
PROVIDERS: ATTEND Physician Assistant
DX: I50.42 Chronic combined systolic (congestive) and diastolic (congestive) heart failure (principal)

== ENCOUNTER → 2021-05-01 | Outpatient (CLI) | payer MEDICARE ==
[~2021-05-01] MED LIST changes: -KLOR10TA76 PO; +POTA-136 PO
[2021-05-01 16:09] LABS: CALCIUM LEVEL 9.8 MG/DL (8.8-10.2); CREATININE FOR GFR 1.24 MG/DL (0.70-1.30); GLOMERULAR FILTRATION RATE 58.4 (>35); MAGNESIUM LEVEL 2.2 MG/DL (1.8-2.4); POTASSIUM SERUM 4.3 MEQ/L (3.5-5.1)
== END ==
LOC: M PLALAB 12:22
PROVIDERS: ATTEND Physician Assistant
DX: I50.42 Chronic combined systolic (congestive) and diastolic (congestive) heart failure (principal)